=== PATIENT | female | born 1975 | race Hispanic/Latino ===

== ENCOUNTER → 2017-12-06 10:14 | Outpatient (CLI) | payer OTHER, SELFPAY ==
[2017-12-06 11:57] LABS: TSH w/ Reflex to FT4 1.12 uIU/mL (0.47-4.68)
[2017-12-09 15:56] LABS: Thyroid Peroxidase Antibodies < 1 IU/mL (< 9)
[2017-12-09 19:47] LABS: Progesterone 11.8 ng/mL
[2017-12-11 12:32] LABS: Cardiolipin Ab IgA < 11 APL; Cardiolipin Ab IgG < 14 GPL; Cardiolipin Ab IgM < 12 MPL; PTT-LA Screen 32 seconds (< 41); dRVVT Screen 34 seconds (< 46)
== END ==
PROVIDERS: Visit Provider Specialist
DX: N96 Recurrent pregnancy loss (principal)
CPT/HCPCS: 36415; 84144; 84443; 85597; 85613; 85730; 86147; 86376

== ENCOUNTER → 2017-12-27 08:26 | Outpatient (CLI) | payer OTHER, SELFPAY ==
[2017-12-27 09:07] LABS: Initial Volume 0.5 mL; Semen 30 min. Liquification? Yes
[2017-12-27 09:43] LABS: Final Volume 0.5 mL
== END ==
PROVIDERS: Family Provider Registered Nurse Women's Health Care, Ambulatory; PCP Registered Nurse Women's Health Care, Ambulatory; Visit Provider Specialist
DX: N97.0 Female infertility associated with anovulation (principal)
CPT/HCPCS: 58323

== ENCOUNTER → 2018-01-25 09:15 | Outpatient (CLI) | payer OTHER, SELFPAY ==
[2018-01-25 10:17] LABS: Final Volume 0.5 mL; Initial Volume 3 mL; Semen 30 min. Liquification? Yes
== END ==
PROVIDERS: Family Provider Registered Nurse Women's Health Care, Ambulatory; PCP Registered Nurse Women's Health Care, Ambulatory; Visit Provider Specialist
DX: N97.0 Female infertility associated with anovulation (principal)
CPT/HCPCS: 58323

== ENCOUNTER → 2018-02-13 09:21 | Outpatient (CLI) | payer OTHER, SELFPAY ==
[2018-02-13 10:41] LABS: HCG Quantitative /Beta subunit 426.11 mIU/mL
== END ==
PROVIDERS: PCP Registered Nurse Women's Health Care, Ambulatory; Visit Provider Specialist
DX: N91.2 Amenorrhea, unspecified (principal); N96 Recurrent pregnancy loss
CPT/HCPCS: 36415; 84702

== ENCOUNTER → 2018-02-16 07:07 | Outpatient (CLI) | payer OTHER, SELFPAY ==
[2018-02-16 08:47] LABS: HCG Quantitative /Beta subunit 916.35 mIU/mL
== END ==
PROVIDERS: PCP Registered Nurse Women's Health Care, Ambulatory; Visit Provider Specialist
DX: N91.2 Amenorrhea, unspecified (principal); N96 Recurrent pregnancy loss
CPT/HCPCS: 36415; 84702

== ENCOUNTER → 2018-03-03 09:03 | Outpatient (CLI) | payer OTHER, SELFPAY ==
[2018-03-03 11:12] LABS: Add Manual Diff / Slide Review NO; Basophils Percent Auto 0.5 % (0-2); Hematocrit 36.5 % (36-46); Hemoglobin 12.8 g/dL (12.0-16.0); Lymphocytes Percent Auto 24.6 % (25-40); Mean Corpuscular HGB Conc 35.1 % (30-36); Mean Corpuscular Hemoglobin 32.1 PG (26-34); Mean Corpuscular Volume 91.5 fL (80-100); Monocytes Percent Auto 8.1 % (3-14); Neutrophils Absolute Auto 3500 /uL (3000-5900); Neutrophils Percent Auto 65.8 % (50-75); Platelet Count 209 X10^3/uL (150-400); Red Blood Cell Count 3.99 X10^6/uL (4.0-5.2); Red Cell Distribution Width 12.8 % (11.6-14.8); White Blood Cell Count 5.4 X10^3/uL (4.5-11.0)
[2018-03-03 11:27] LABS: Appearance Urine UA CLEAR; Bilirubin Urine UA NEGATIVE (NEGATIVE); Color Urine UA YELLOW; Glucose Urine UA NEGATIVE (Normal); Ketones Urine UA 1+ (NEGATIVE); Leukocyte Esterase Urine UA NEGATIVE (NEGATIVE); Nitrite Urine UA Negative (Negative); Occult Blood Urine UA NEGATIVE (Negative); Protein Urine UA NEGATIVE (Negative); Urobilinogen Urine UA 0.2 E.U./dL (0.2)
[2018-03-03 12:18] LABS: Hepatitis B Surface Antigen NEGATIVE s/c (NEGATIVE); Rubella Antibody IgG 2.5 IU/mL (>15)
[2018-03-03 12:33] LABS: HIV 1 and 2 Antibody NEGATIVE (NEGATIVE); Hep C Virus Ab w/Reflex Quant NEGATIVE s/c (NEGATIVE)
[2018-03-04 14:12] LABS: HSV 2 IGG AB < 0.90 index (< 0.90); HSV1IGG > 58.00 index (< 0.90)
[2018-03-11 14:54] LABS: Rapid Plasma Reagin NON REACTIVE
== END ==
PROVIDERS: PCP Registered Nurse Women's Health Care, Ambulatory; Visit Provider Specialist
DX: Z34.81 Encounter for supervision of other normal pregnancy, first trimester (principal); Z3A.01 Less than 8 weeks gestation of pregnancy
CPT/HCPCS: 36415; 80055; 81003; 86695; 86696; 86703; 86787; 86803; 86850; 86900; 86901; 87086